=== PATIENT | male | born 1940 | race Caucasian/White ===

== ENCOUNTER 2017-01-24 22:04 | Inpatient (IN) | payer OTHER, BC ==
[~2017-01-24] VITALS: Ht 167.6 cm; Wt 83.9 kg
[2017-01-24 22:30] LABS: BASOPHIL % 0.3 % (0-2); PLATELET COUNT 234 x10^3mcL (130-400); RED CELL DISTRIBUTION WIDTH 14.1 % (11.5-14.5)
[2017-01-24 22:42] LABS: CARBON DIOXIDE 25.6 mmol/L (21-32); CHLORIDE SERUM 104 mmol/L (98-107); CREATININE SERUM 1.5 mg/dL (0.7-1.3); GLUCOSE SERUM 127 mg/dL (74-106); POTASSIUM SERUM 3.7 mmol/L (3.5-5.1); SODIUM SERUM 140 mmol/L (136-145)
[2017-01-24 22:47] LABS: ALBUMIN 3.8 g/dL (3.4-5.0); ALKALINE PHOSPHATASE 85 U/L (46-116); ALT/SGPT 28 U/L (16-63); AST/SGOT 26 U/L (15-37); BILIRUBIN TOTAL 0.33 mg/dL (0.20-1.00); TOTAL PROTEIN, SERUM 7.3 g/dL (6.4-8.2)
[2017-01-24 23:04] LABS: CK-MB 4.4 ng/mL (0-3.6)
[2017-01-24] MEDS ORDERED: VENTOLIN H0.09 MG/A1 INH (23:33)
[2017-01-24] MEDS ORDERED: BENAZEPRIL HCL/1 TAB PO (23:33)
[2017-01-24] MEDS ORDERED: ZYL100 PO (23:35)
[2017-01-25] VITALS (7 sets, daily range): BP systolic 108–129; BP diastolic 71–85; Ht 167.6 cm; Wt 83.9 kg
[2017-01-25 00:57] LABS: MAGNESIUM 2.1 mg/dL (1.8-2.4); PHOSPHOROUS 4.6 mg/dL (2.5-4.9)
[2017-01-25 01:03] LABS: CHOLESTEROL/HDL RATIO 6.3
[2017-01-25 01:05] LABS: FREE T4 1.13 ng/dL (0.76-1.46); FREE THYROXINE INDEX 2.5 ug/dL (1.4-4.5); T4(THYROXINE) 7.5 ug/dL (4.7-13.3)
[2017-01-25 02:53] LABS: microscopic required? NO
[2017-01-25 03:19] LABS: urine erythrocyte NEGATIVE (NEGATIVE)
[2017-01-25 07:16] LABS: CALCIUM 8.4 mg/dL (8.5-10.1); CARBON DIOXIDE 23.6 mmol/L (21-32); CHLORIDE SERUM 105 mmol/L (98-107); CREATININE SERUM 1.3 mg/dL (0.7-1.3); GLUCOSE SERUM 127 mg/dL (74-106); POTASSIUM SERUM 3.9 mmol/L (3.5-5.1); SODIUM SERUM 138 mmol/L (136-145)
[2017-01-25 07:22] LABS: ALBUMIN 3.1 g/dL (3.4-5.0)
[2017-01-25 07:25] LABS: BASOPHIL % 0.4 % (0-2); PLATELET COUNT 182 x10^3mcL (130-400); RED CELL DISTRIBUTION WIDTH 13.7 % (11.5-14.5)
[2017-01-26 05:15] VITALS: BP 127/79
[2017-01-26 06:04] LABS: BASOPHIL % 0.3 % (0-2); PLATELET COUNT 200 x10^3mcL (130-400); RED CELL DISTRIBUTION WIDTH 13.8 % (11.5-14.5)
[2017-01-26 06:23] LABS: CALCIUM 8.4 mg/dL (8.5-10.1); CARBON DIOXIDE 25.1 mmol/L (21-32); CHLORIDE SERUM 108 mmol/L (98-107); CREATININE SERUM 1.4 mg/dL (0.7-1.3); GLUCOSE SERUM 103 mg/dL (74-106); MAGNESIUM 1.7 mg/dL (1.8-2.4); PHOSPHOROUS 3.9 mg/dL (2.5-4.9); POTASSIUM SERUM 3.8 mmol/L (3.5-5.1); SODIUM SERUM 141 mmol/L (136-145)
[2017-01-26 09:25] VITALS: BP 135/82
[2017-01-26 09:37] VITALS: BP 142/88
[2017-01-26] MEDS ORDERED: METOPROLOL TART25 M1 PO (16:13)
[2017-01-26] MEDS ORDERED: NIT0.4 SL (16:13)
[2017-01-26] MEDS ORDERED: LIPI10 PO (16:13)
[2017-01-26] MEDS ORDERED: BG FS (16:14)
[2017-01-26] MEDS ORDERED: ECO81 PO (16:14)
[2017-01-26] MEDS ORDERED: HYDROCHLOROTH12.5 M3 PO (16:14)
[2017-01-26] MEDS ORDERED: LOT20 PO (16:14)
[2017-01-26] MEDS ORDERED: ZYL100 PO (16:15)
[2017-01-26] MEDS ORDERED: CLOPIDOGREL75 M1 PO (16:47)
[2017-01-26 16:50] VITALS: BP 142/88
[2017-01-26 17:24] VITALS: BP 125/80
== END 2017-01-26 18:15 | disposition short-term general hospital (02) | DRG 280 ==
LOC: ED 22:04 → DU 23:32
PROVIDERS: Emergency Medicine; Internal Medicine Interventional Cardiology; ADMIT Family Medicine
PROC: B2151ZZ Fluoroscopy of Left Heart using Low Osmolar Contrast (ICD-10-PCS; 2017-01-26)
PROC: B2101ZZ Fluoroscopy of Single Coronary Artery using Low Osmolar Contrast (ICD-10-PCS; 2017-01-26)
PROC: 4A023N7 Measurement of Cardiac Sampling and Pressure, Left Heart, Percutaneous Approach (ICD-10-PCS; principal; 2017-01-26 12:00)
DX: I21.4 Non-ST elevation (NSTEMI) myocardial infarction (principal); N17.0 Acute kidney failure with tubular necrosis; E44.0 Moderate protein-calorie malnutrition; D68.69 Other thrombophilia; E83.42 Hypomagnesemia; E11.65 Type 2 diabetes mellitus with hyperglycemia; E87.8 Other disorders of electrolyte and fluid balance, not elsewhere classified; J44.9 Chronic obstructive pulmonary disease, unspecified; I10 Essential (primary) hypertension; I25.10 Atherosclerotic heart disease of native coronary artery without angina pectoris; M10.9 Gout, unspecified; L53.9 Erythematous condition, unspecified; E78.5 Hyperlipidemia, unspecified; E03.9 Hypothyroidism, unspecified; Z68.29 Body mass index [BMI] 29.0-29.9, adult; Z87.891 Personal history of nicotine dependence; Z95.0 Presence of cardiac pacemaker; Z95.5 Presence of coronary angioplasty implant and graft
CPT/HCPCS: CLHCL; 80307; 82962; 83880; 84439; 94150; C1769; C1887; C1894; C9113; J1644; J1815; J2001; J2060; J2250; J2270; J2405; J3010; J3490; J7030; J7040; J7613; Q0092; Q9967